=== PATIENT | female | born 2000 | race Hispanic/Latino ===

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

== ENCOUNTER 2019-06-04 15:52 | Emergency (ER) | payer SELFPAY ==
[2019-06-04] MEDS ORDERED: NA CHLORIDE 0.9% 500 ML ONE (16:35)
[2019-06-04] MEDS ORDERED: METOCLOPRAMIDE 10 MG/2mL INJ ONE (16:35)
[2019-06-04] MEDS ORDERED: DIPHENHYDRAMINE 50 MG/ML VIAL ONE (16:35)
[2019-06-04 16:54] LABS: Absolute Lymphocytes (CBC) 1.6 K/uL (0.7-4.9); Basophils % 0.5 % (0-1.3); Hematocrit 42.5 % (36.0-45.0); Lymphocytes % 16.6 % (15.3-44.8); MPV 7.6 fL (7.6-11.3); RBC Red Blood Cell Count 4.89 M/uL (3.86-4.86)
--- NOTE | 2019-06-04 17:04 | RAD REPORT ---
EXAM DESCRIPTION: CT - Head Brain Wo Cont - 06/04/2019 4:53 pm CLINICAL HISTORY: sheild patient;Headache;Trauma Headache. Drowsiness COMPARISON: <Comparisons> TECHNIQUE: All CT scans are performed using dose optimization technique as appropriate and may inclu de automated exposure control or mA/KV adjustment according to patient size. FINDINGS: No intracranial hemorrhage, hydrocephalus or extra-axial fluid collection.No areas of brai n edema or evidence of midline shift. The paranasal sinuses and mastoids are clear. The calvarium is intact. IMPRESSION: No acute intracranial abnormality.
[2019-06-04 17:11] LABS: BUN Blood Urea Nitrogen 12 mg/dL (7-18); Bicarbonate 25 mmol/L (21-32); Glucose Level 92 mg/dL (74-106); Potassium 3.8 mmol/L (3.5-5.1); Sodium Level 140 mmol/L (136-145)
--- NOTE | 2019-06-04 17:16 | ER ---
Nurse's Notes [facility] Name: Haley Stout Age: 19 yrs Sex: Female : 2000 Arrival Date: 06/04/2019 Time: 15:55 Bed 16 Private MD: Diagnosis: Migraine Presentation: 06/04 15:56 Presenting complaint: EMS states: Pt c/o Right sided JOHNSTON since yesterday, does not jl7 radiate. Also c/o bloody stool. Transition of care: patient was not received from another setting of care. Onset of symptoms was June 03, 2019. Risk Assessment: Do you want to hurt yourself or someone else? Patient reports no desire to harm self or others. Initial Sepsis Screen: Does the patient meet any 2 criteria? No. Patient's initial sepsis screen is negative. Does the patient have a suspected source of infection? No. Patient's initial sepsis screen is negative. Care prior to arrival: None. 15:56 Method Of Arrival: EMS: [place] [id number] 15:56 Acuity: GLEN 3 jl7 Triage Assessment: 15:59 Headache History: The patient has had previous headaches and this one is more severe jl7 than previous episodes. General: Appears in no apparent distress. uncomfortable, Behavior is cooperative, appropriate for age, anxious. Pain: Complains of pain in right sided JOHNSTON Pain does not radiate. Pain currently is 10 out of 10 on a pain scale. Quality of pain is described as sharp, Pain began 1 day ago. Is continuous, Also complains of no other associated symptoms. EENT: No signs and/or symptoms were reported regarding the EENT system. Neuro: Level of Consciousness is awake, alert, obeys commands, Oriented to person, place, time, situation. Cardiovascular: Patient's skin is warm and dry. Respiratory: Airway is patent Respiratory effort is even, unlabored, Respiratory pattern is regular, symmetrical. GI: Reports constipation, bloody stool. Derm: Skin is pink, warm \T\ dry. ELEMENT BURNER: 15:59 LMP 05/20/2019 jl7 Historical: - Allergies: 15:59 No Known Allergies; jl7 - Home Meds: 15:59 None [Active]; jl7 - PMHx: 15:59 Constipation; jl7 - PSHx: 15:59 None; jl7 - Immunization history:: Adult Immunizations unknown. - Social history:: Smoking status: Patient/guardian denies using tobacco. - Ebola Screening: : No symptoms or risks identified at this time. Screenin:03 Abuse screen: Denies threats or abuse. Denies injuries from another. Nutritional jl7 screening: No deficits noted. Tuberculosis screening: No symptoms or risk factors identified. 17:30 Fall Risk IV access (20 points). Total Hernandez Fall Scale indicates No Risk (0-24 pts). jl7 Assessment: 16:03 General: See triage assessment. jl7 17:30 Reassessment: Patient appears in no apparent distress at this time. Patient and/or jl7 family updated on plan of care and expected duration. Pain level reassessed. Patient is alert, oriented x 3, equal unlabored respirations, skin warm/dry/pink. Patient states symptoms have improved. Vital Signs: 15:59 BP 125 / 62; Pulse 70; Resp 16; Pulse Ox 100% on R/A; Weight 86.18 kg (R); Pain 10/10; jl7 17:30 BP 128 / 65; Pulse 71; Resp 16 S; Pulse Ox 100% on R/A; Pain 7/10; jl7 ED Course: 15:55 Patient arrived in ED. jl7 15:58 Triage completed. jl7 15:59 Arm band placed on right wrist. jl7 16:03 Yoel Carrasco PA is PHCP. jr8 16:03 Dex Bryant MD is Attending Physician. jr8 16:03 Patient has correct armband on for positive identification. Placed in gown. Bed in low jl7 position. Call light in reach. Side rails up X 1. Security at bedside. Pulse ox on. NIBP on. 16:32 Jose D Madrigal RN is Primary Nurse. jl7 16:50 Initial lab(s) drawn, by md, sent to lab. Inserted saline lock: 22 gauge in left jl7 antecubital area, using aseptic technique. Blood collected. 17:33 No provider procedures requiring assistance completed. IV discontinued, intact, jl7 bleeding controlled, No redness/swelling at site. Pressure dressing applied. Administered Medications: 06:46 Drug: Reglan 10 mg Route: IVP; Site: left antecubital; jl7 17:15 Follow up: Response: No adverse reaction; Pain is decreased jl7 16:45 Drug: Benadryl 25 mg Route: IVP; Site: left antecubital; jl7 17:15 Follow up: Response: No adverse reaction; Pain is decreased jl7 16:45 Drug: NS 0.9% 500 ml Route: IV; Rate: bolus; Site: left antecubital; jl7 17:31 Follow up: Response: No adverse reaction; IV Status: IV converted to saline lock; Order jl7 to discontinue infusion; IV Intake: 200ml Intake: 17:31 IV: 200ml; Total: 200ml. jl7 Outcome: 17:16 Discharge ordered by MD. foy 17:33 Discharged to Law Enforcement jl7 17:33 Condition: stable 17:33 Discharge instructions given to patient, police, Instructed on discharge instructions, follow up and referral plans. Demonstrated understanding of instructions, follow-up care. 17:34 Patient left the ED. jl7 Signatures: Yoel Carrasco PA PA jr8 Jose D Madrigal RN RN jl7
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
[2019-06-04 18:29] VITALS: O2SAT 100
[2019-06-04 18:30] VITALS: BP 128/65
== END 2019-06-04 17:34 | disposition home or self-care (01) ==
LOC: ER 15:52
DX: G43.909 Migraine, unspecified, not intractable, without status migrainosus (principal)
CPT/HCPCS: 36415; 70450; 80048; 85025; 96361; 96374; 96375; 99285; J2765